=== PATIENT | female | born 1970 | race African-American/Black ===

== ENCOUNTER 2022-08-26 01:31 | Emergency (ER) | payer SELFPAY ==
[~2022-08-26] VITALS: Ht 175.3 cm; Wt 74.8 kg
--- NOTE | 2022-08-26 02:15 | NUR ---
Patient does not wish to proceed with medical care recommended by Dr. Holden. Patient given information related to possible complications, up to and including , which could occur as a result of leaving the hospital at this time. Patient verbalizes understanding of risks involved due to leaving against medical advice. Patient has signed AMA form.
--- NOTE | 2022-08-26 03:13 | NUR ---
see downtime notes
[2022-08-26 03:16] VITALS: BP 130/38
== END 2022-08-27 | disposition left against medical advice (07) ==
LOC: ER 08-27 04:45
DX: Z53.21 Procedure and treatment not carried out due to patient leaving prior to being seen by health care provider (principal)